=== PATIENT | female | born 1955 | race Hispanic/Latino ===

== ENCOUNTER 2024-02-26 06:45 | Day surgery (SDC) | payer MEDICARE, MEDICAID ==
[2024-02-18 10:16] VITALS: BP 120/71
[~2024-02-26] VITALS: Ht 157.5 cm; Wt 61.4 kg
[~2024-02-26 06:45] MED LIST: ATORVASTATIN CA10 MG PO; CYCLOBENZAPRINE5 MG PO; DICYCLOMINE HCL10 MG PO; LIDOCAINE-PRILOC5 GM TOP; LYRICA75 MG PO; METFORMIN HCL500 M1 PO; MIDAZOLAM HCL 5 MG/5 ML VIAL IV PRN; OSTERA TABLET1 EACH PO; OXYBUTYNIN CHLOR5 MG PO; PANTOPRAZOLE SO40 MG PO; PREDNISOLONE ACE5 M1 OP; PRILOSEC OTC20 MG PO; PROLIA60 MG/1 ML SUB-Q; ZENPEP DR 20,01 EACH PO; ZYRTEC10 MG PO; fentaNYL citrate 100 MCG/2 ML VIAL IV PRN
[2024-02-26] MEDS ORDERED: LACTATED RINGER'S 1,000 ML IV SCH (07:00)
[2024-02-26] MEDS ORDERED: LIDOCAINE HCL 1% 5 ML SDV INJ ONE (07:00)
[2024-02-26] MEDS ORDERED: IBLOOD GLUCOSE TEST STRIP 1 EA TEST VI PRN (07:00)
[2024-02-26 07:01] VITALS: BP 120/68
[2024-02-26] MEDS ORDERED: propofoL 200 MG/20 ML VIAL ONE (08:23)
[2024-02-26] MEDS ORDERED: LIDOCAINE HCL 2% 5 ML SDV ONE (08:42)
[2024-02-26] MEDS ORDERED: SOD PHOSPHATE/SOD BIPHOSPHATE 132 ML BTL PR ONE (09:45)
[2024-02-26] MEDS ORDERED: bisacodyL 10 MG SUPP PR ONE (09:45)
[2024-02-26 10:40] VITALS: BP 136/71
--- NOTE | 2024-02-26 10:52 | NUR ---
02/26/24 1052 FROYLAN NEWBERRY 0919 PT ARRIVED TO PACU VIA STREACHER, REPORT TAKEN FROM OBDULIO KHANNA. BREATHING EQUAL AND UNLABORED. PT RESTING, ON LEFT SIDE. PT ON 2L OF O2 VIA NASAL CANULLA. TRANSITION TEACHER USED [id number]. ALL MONITORS ATTACHED. 0931 PT WAKES VERY TEARFUL AND MOANING. PT STATES 10/10 PAIN AND SOME NAUSEA. PT ABDOMEN DESTENDED AND FIRM. BOWEL SOUNDS ASSESSED, HYPERACTIVE BOWEL TONES IN ALL 4 QUADRENTS. EDUATED PT ON PASSING GAS TO HELP ALLEVIATE CRAMPING PAIN. 0937 DUCALAX SUPPOSITORY AND FLEETS ENEMA PRN ORDER OBTAINED FROM RANDA KHANNA. EXPLAINED THESE TO PT PT PAIN STILL 10/10. PT STATES THAT PAIN IN ABDOMEN AT HOME IS 8/10. 0942 PT ABLE TO PASS GAS, PT STATES PAIN HAS COME DOWN. PT REFUSES SUPPOSITORY AND ENEMA DUE TO PAIN SUBSIDING AND BEING ABLE TO PASS GAS NOW. PT STATES 9/10 PAIN. 1000 PT FEELING BETTER AFTER BEING ABLE TO PASS MORE GAS. PT REPORTS TOELRABLE 4/10 PAIN. 1015 DISCHARGE INFORMATION GONE OVER WITH PT. INFORMATION PACKETS GIVEN TO PT IN TUN[place]. PT STOOD AT THE EDGE OF THE BED, PT REPORTS NO NAUSEA OR DIZZINESS. PT ABLE TO DRESS ON OWN. 1020 IV TAKEN OUT FOR DISCHARGE. 1025 PT DISCHARGED FROM PACU VIA WHEEL CHAIR TO PT SON'S CAR AT THE FRONT OF THE HOSPITAL.
--- NOTE | 2024-02-26 11:11 | OR ---
[facility] [address], [place] [address] Signed DATE OF OPERATION: 02/26/2024 SURGEON: Cayetano Marques MD PREOPERATIVE DIAGNOSES: 1. Guaiac-positive stool. 2. Chronic generalized abdominal pain. 3. Irritable bowel syndrome. 4. Diverticulosis. 5. Celiac disease. POSTOPERATIVE DIAGNOSES: 1. Minimal to moderate diverticulosis. 2. Minimal internal hemorrhoids. PROCEDURE: Colonoscopy without biopsy. ESTIMATED BLOOD LOSS: None. INDICATIONS: Ramona is a 69-year-old female, asked to see me for a followup colonoscopy. It looks like Dr. Arana helped for in January or March 2022. She recalls upper and lower endoscopy. She confirms celiac disease and eats a gluten free diet. She recognizes it is diverticulosis. She is said to have irritable bowel syndrome as well as generalized chronic abdominal pain. For some reason, she gave a stool sample recently and it came back guaiac positive. Therefore, she was asked to see me for a followup colonoscopy. We have been trying to track down her previous records. We used our traffic maintenance officer on the phone line to help us in the office. We did that this morning as well. Her daughter had stayed outside. She is telling me she has no lower GI complaints. In the office, I gave her a pamphlet on colonoscopy. We had reviewed the nature of the test. There is risk including, but not limited to gas bloating, crampy abdominal pain, bleeding, perforation requiring surgery, and missed diagnosis. We also reviewed the written instructions for the bowel prep line by line. She also understands the need for monitored anesthesia care with propofol infusion. She understands an adult person will take her home afterwards. It looks like that will be her son. She had expressed understanding and wished to proceed. PROCEDURE IN DETAIL: Electronically Signed By: CAYETANO MARQUES MD 02/26/24 1111 PATIENT NAME: RAMONA CHEN OPERATIVE REPORT DATE OF : 55 REPORT #: [id number] PHYSICIAN: CAYETANO MARQUES MD PCP: BALJINDER ARANGO REPORT IS CONFIDENTIAL AND NOT TO BE RELEASED WITHOUT AUTHORIZATION [facility] [address] [place], [place] [address] Signed Ramona was taken into our endoscopy suite and placed in the left lateral decubitus position. She was given monitored anesthesia care with propofol infusion per our nurse centrex radio operator. That proved to be a bello decision as she needed several boluses throughout the procedure. A digital rectal exam was performed. This was unremarkable. She had no external hemorrhoids. She had good sphincter tone. There were no masses. The adult colonoscope was introduced and advanced under direct visualization of the camera. Her sigmoid colon was somewhat tortuous and it took a few minutes to get through that area and around into the cecum itself. We had to use extra propofol and abdominal compression to get the scope in the cecum. Her prep was quite excellent. We could easily see the appendiceal orifice and the ileocecal valve. The scope was then slowly withdrawn. We took several pictures throughout for photodocumentation. She has moderate-sized diverticula in the left and sigmoid colon. They are minimal to moderate in number and scattered about. Once in the rectum, the scope was retroflexed. She has very minimal internal hemorrhoid tissue. After this, the gas was suctioned out and the colonoscope removed. Ramona tolerated the procedure quite well. RECOMMENDATIONS: Ramona can return in 10 years for repeat screening colonoscopy based on the above. If her research and development tester has found adenomatous polyps, then she would come in 5 years. Cayetano Marques MD [facility] /[id number] cc: CLAUDIA Sheldon MD Copies: CAYETANO MARQUES MD ~ Electronically Signed By: CAYETANO MARQUES MD 02/26/24 1111 PATIENT NAME: RAMONA CHEN OPERATIVE REPORT DATE OF : 55 REPORT #: [id number] PHYSICIAN: CAYETANO MARQUES MD PCP: BALJINDER ARANGO REPORT IS CONFIDENTIAL AND NOT TO BE RELEASED WITHOUT AUTHORIZATION
== END 2024-02-26 10:25 | disposition home or self-care (01) ==
LOC: DS 06:45
PROVIDERS: ATTEND Colon & Rectal Surgery
PROC: 0DJD8ZZ Inspection of Lower Intestinal Tract, Via Natural or Artificial Opening Endoscopic (ICD-10-PCS; principal; 2024-02-26 08:35)
DX: K57.30 Diverticulosis of large intestine without perforation or abscess without bleeding (principal); K64.8 Other hemorrhoids; K90.0 Celiac disease; K58.9 Irritable bowel syndrome, unspecified; E11.9 Type 2 diabetes mellitus without complications; E78.2 Mixed hyperlipidemia; Z79.84 Long term (current) use of oral hypoglycemic drugs; Z79.899 Other long term (current) drug therapy; Z88.6 Allergy status to analgesic agent; Z88.8 Allergy status to other drugs, medicaments and biological substances
CPT/HCPCS: J2003; J2704; J7121